=== PATIENT | male | born 1975 | race Two or more races ===

== ENCOUNTER 2018-10-18 01:29 | Emergency (ER) | payer OTHER ==
[~2018-10-18] VITALS: Ht 167.6 cm; Wt 61.7 kg
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
--- NOTE | 2018-10-18 01:35 | NUR ---
ED Nurse Note: aspiration precaution in place.
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
[2018-10-18 01:56] VITALS: BP 137/76
--- NOTE | 2018-10-18 02:00 | NUR ---
HAND-OFF: Report given to AVRIL Cade and endorsed care. airway intact, resp even and unlabored on RA.
[2018-10-18 03:26] VITALS: BP 131/69
[2018-10-18 05:40] VITALS: BP 127/69
--- NOTE | 2018-10-18 05:40 | NUR ---
ER DISCHARGE NOTE: Patient is cleared to be discharged per ERMD, pt is aox4, on room air, with stable vital signs. pt was given dc instructions, pt was able to verbalize understanding, pt id band removed. pt is able to ambulate with steady gait. pt took all belongings.
== END 2018-10-18 05:40 | disposition home or self-care (01) ==
LOC: EDBD 01:29 → EMR 01:57
DX: F10.129 Alcohol abuse with intoxication, unspecified (principal); R11.10 Vomiting, unspecified
CPT/HCPCS: 96374; 99284; J2405